=== PATIENT | male | born 1985 | race Caucasian/White ===

== ENCOUNTER 2022-10-16 13:45 | Outpatient (CLI) | payer OTHER, SELFPAY | END 2022-10-16 13:46 | disposition home or self-care (01) | LOC: RAD 13:46 | PROVIDERS: PCP Internal Medicine; Visit Provider Internal Medicine | DX: I49.8 Other specified cardiac arrhythmias (principal) | CPT/HCPCS: 93306 ==

== ENCOUNTER 2022-11-23 07:50 | Outpatient (CLI) | payer OTHER, SELFPAY | END 2022-11-23 07:51 | disposition home or self-care (01) | LOC: NFLDREF 11-29 07:48 | PROVIDERS: PCP Internal Medicine; Referring Provider Internal Medicine; Visit Provider Internal Medicine | DX: Z13.9 Encounter for screening, unspecified (principal); Z13.6 Encounter for screening for cardiovascular disorders; Z12.5 Encounter for screening for malignant neoplasm of prostate | CPT/HCPCS: 80053; 80061; 84153 ==

== ENCOUNTER 2024-10-16 07:52 | Outpatient (CLI) | payer BC, SELFPAY | END 2024-10-16 07:53 | disposition home or self-care (01) | LOC: NFLDREF 10-19 20:35 | PROVIDERS: PCP Internal Medicine; Referring Provider Internal Medicine; Visit Provider Internal Medicine | DX: E78.5 Hyperlipidemia, unspecified (principal); F41.9 Anxiety disorder, unspecified; Z13.9 Encounter for screening, unspecified | CPT/HCPCS: 80053; 80061 ==